=== PATIENT | male | born 1985 | race Caucasian/White ===

== ENCOUNTER 2019-10-23 16:24 | Emergency (ER) | payer BC, SELFPAY ==
[2019-10-23] VITALS (23 sets, daily range): BP systolic 121–163; BP diastolic 71–98; PULSE 78–100; RESP 19–27; O2SAT 94–99
--- NOTE | 2019-10-23 16:27 | W.ED.GENAD ---
Discharge Plan Disposition Patient Disposition: HOME Condition: Good Discharge Details Chief Complaint: Chest Pain Clinical Impression: Atypical chest pain Primary Care Provider: Ana Luisa Sal ED Provider: Priscilla Mead Home Meds and New Rx's Prescriptions: Continued acetaminophen 500 MG tablet 1,000 mg PO TID PRNQty: 90 RF: 0 marijuana Inhalation PRN RF: 0 albuterol sulfate [ProAir HFA] 90 mcg/actuation HFA aerosol inhaler 1 - 2 puff Inhalation .Q4-6H PRN (Reason: shortness of breath or wheezing) Qty: 1 RF: 0 tizanidine 4 mg capsule See Rx Instructions PO QHS PRNRF: 0 Discharge Instructions Instructions: Chest Pain (ED) Additional Instructions: Your exam, labs and imaging are reassuring today. This is most consistent with muscular source of your discomfort. Please encourage water intake. Tylenol and/or ibuprofen as needed for discomfort. Please encourage deep breathing as you did have atelectasis noted on CT of your chest as discussed. Try to avoid repetitive activities and activities that cause increased pain. Develop fever/chills, shortness of breath, difficulty breathing, increased pain or other new/worsening symptom please seek care urgently once again. Otherwise, please follow-up with primary care next week. Stand Alone Forms: PENDING COVID-19 TESTING Referrals: Ana Luisa Sal NP [Primary Care Provider] - Discharge Data Discharge Date/Time-TO BE ENTERED AT DEPARTURE: 10/23/19 18:35 Medical Decision Making <ANYA Chin - Last Filed: 10/25/19 09:18> Patient is a pleasant 34-year-old gentleman, accompanied by his , with chief complaint of chest pain. He reports that last Saturday, he developed central chest discomfort which is made worse with movements, particularly of the upper extremities as well as deep breathing. States that secondary to this discomfort with deep inspiration he has felt slightly short of breath. Has not noted the shortness of breath to be affected by simply walking or going upstairs. He has no history of cardiac disease personally but does report that his father had coronary artery disease and states that he believes he was diagnosed in his late 40s. He denies any recent travel. He has no history of DVTs or blood clots. however, he does report that his father multiple clots and is unsure if these were provoked or unprovoked. He is unsure of any genetic testing that may been performed. States he was at rest at the time the pain came on states that it was a slow progression to the level of discomfort he is currently experiencing. He does not find it is any worse with eating. He denies any trauma. Does not note any rash. Endorses some mild nausea but no vomiting. Denies any lower extremity pain. EKG was reviewed by Dr. Hernandez. Patient is in normal sinus rhythm with a rate 84. No acute ischemic changes are noted. On exam, patient is resting comfortably. He is having no pain while at rest. His lungs are clear, normal cardiovascular exam. He does have pain elicited with palpation about the chest wall. Lower extremities are without edema, no posterior calf pain. Given the patient's family history as well as persistent discomfort I feel that further evaluation is appropriate. I did consider pulmonary embolism on my differential based on familial history as well as persistent discomfort and pleuritic quality of the discomfort and associated shortness of breath. Plan for CT imaging. CT was reviewed by radiologist: FINDINGS: Pulmonary arteries: Normal. No pulmonary emboli. Aorta: Unremarkable. No evidence of aortic dissection with some limitation of evaluation of the root due to cardiac and respiratory motion. It Lungs: There is patchy ground-glass opacity in the left lower lobe. This likely represents atelectasis related to the elevated hemidiaphragm, a component of pneumonia cannot be excluded. Peripheral hypodensities within this region suggest air trapping or possibly peripheral cystic spaces. There are couple surgical clips in the right perihilar region. Pleural space: Unremarkable. No pneumothorax. No pleural effusion. Heart: Unremarkable. No cardiomegaly. No pericardial effusion. Diaphragm: There is moderate elevation of the left hemidiaphragm. Lymph nodes: Unremarkable. No enlarged lymph nodes. Bones/joints: Unremarkable. No acute fracture. Soft tissues: Unremarkable. IMPRESSION: 1. No pulmonary embolus or aortic dissection. 2. Elevated left hemidiaphragm with likely atelectasis in the left lung base. Superimposed pneumonia cannot be excluded. Again questioned patient about any types of infectious symptoms. He denies any cough, fever, congestion. His history does not fit that of possible infection and feel that this is more associated with his atelectasis as he with the patient having discomfort with deep breathing. Labs are reviewed. Patient has no leukocytosis. Normal coagulation study. His initial troponin is less than 0.05. Given the length of his symptoms do not feel that repeat troponin is necessary at this point. His history was much more concerning for possible pulmonary embolism which has been ruled out rather than ACS. Questioning out this more musculoskeletal. Exam the patient pain was greatly exacerbated with having the patient abduct his arms are crossed his chest against resistance. He states that this is what causes the maximal amount of discomfort. With this in mind, I believe this is likely musculoskeletal. He does lift quite frequently at work and has had difficulty performing his job secondary to the discomfort associated with this.. Patient may have had an occult injury leading to this discomfort. Encouraged water intake. Encourage close follow-up with primary care. He was given strict return precautions. Encourage deep breathing. All his questions and concerns were addressed and he is in agreement this plan. HPI <ANYA Chin - Last Filed: 10/25/19 09:18> General Mode of arrival: ambulatory. Date/Time Provider Initiated Documentation: 10/23/19 16:27. Limitations to Documentation: no limitations. Information obtained by: patient, family () and RN notes reviewed. History of Present Illness 34 year old M presents to the emergency department with the chief complaint of CP, described as moderate, with intensity rated at 7. Quality is described as aching, and is localized to the chest. Patient reports no radiation. Patient started experiencing this day(s) (6) and it has been constant. Immobilization improves symptom(s), Movement worsens symptoms . Patient notes chest pain; denies cough, diaphoresis, fever/chills, headaches, loss of appetite, nausea/vomiting, rash, shortness of breath and syncope (dizziness initially, this has been improving). Patient did receive the following treatments prior to arrival, none Related Data Home Medications Medication Instructions Recorded Confirmed acetaminophen 1,000 mg PO TID PRN #90 tab-cap 06/19/17 10/23/19 Marijuana INHALATION PRN 04/08/18 06/03/19 albuterol sulfate 90 mcg/actuation 1 - 2 puff INHALATION .Q4-6H PRN 05/02/18 06/03/19 aerosol inhaler #1 device tizanidine 4 mg capsule See Rx Instructions PO QHS PRN 12/26/18 10/23/19 Previous Rx's Medication Instructions Recorded albuterol sulfate 90 mcg/actuation 1 - 2 puff INHALATION .Q4-6H PRN 05/02/18 aerosol inhaler #1 device Allergies Allergy/AdvReac Type Severity Reaction Status Date / Time duloxetine HCl AdvReac Neuro Verified 10/23/19 16:36 [From Cymbalta] effects; tremor ibuprofen AdvReac gi Verified 10/23/19 16:36 upset/stomach pain Review of Systems <ANYA Chin - Last Filed: 10/25/19 09:18> Constitutional Constitutional: Reports as per HPI, Denies chills, Denies fever(s), Denies headache(s), Denies lethargy and Denies poor appetite Eyes Eyes: Denies change in vision ENT Ears, Nose, Mouth, and Throat: Denies dizziness and Denies headache(s) Cardiovascular Cardiovascular: Reports as per HPI, Denies dyspnea and Denies dyspnea on exertion Respiratory Respiratory: Reports as per HPI, Denies chest congestion, Denies cough, Denies pain on inspiration, Denies pain with cough, Denies dyspnea, Denies dyspnea on exertion and Denies wheezing Gastrointestinal Gastrointestinal: Reports as per HPI, Denies abdominal pain, Denies diarrhea, Denies nausea and Denies vomiting Genitourinary Genitourinary: Denies system reviewed and no additional complaints, except as documented (denies change in urinary habits) Musculoskeletal Musculoskeletal: Reports as per HPI and Denies back pain Integumentary/Breasts Skin/Breast: Reports as per HPI and Denies rash Neurologic Neurologic: Reports as per HPI, Denies dizziness and Denies headache(s) Allergic/Immunologic Allergic/Immunologic: Denies wheezing PFSH <ANYA Chin - Last Filed: 10/25/19 09:18> Medical History (Updated 10/23/19 @ 18:25 by ANYA Chin) Allergic rhinitis, unspecified (Chronic) Asthma Chest pain (Acute) Chronic back pain (Chronic) [facility]; 01/14/2019 lumbar [place] [facility] [place]N (hypertension) (Chronic 08/18/14) Hyperlipidemia, unspecified (Chronic) Mild intermittent asthma without complication (Chronic) Triggered by allergies Obesity (BMI 30-39.9) (Acute) Post laminectomy syndrome (Chronic) Right sided sciatica (Chronic 12/24/11) Chronic, intermittent Surgical History Implantation of Spinal Cord Stimulator (02/01/14) L5/S1 Diskectomy (07/21/12) [facility] [place], had stimulator trial, and has stimulator which doesn't aleviate pain Laminectomy (02/10/14) Sigmoidoscopy Status post insertion of spinal cord stimulator (Resolved) Subsequently removed Social History Smoking/Tobacco Use Status: Never Alcohol Intake: former Drug use: Never Substance use type: marijuana Details: Vapes marijuana at night and 2 times throughout the day on weekends Adopted: No Caregiver/Support person: No Foster care: No Household members: spouse Communication Needs: None Education Level: high school Pets and animals: Yes Pets and animals: cat(s) Current gender identity: male What is your relationship status?: Panel score (0-1 are the most socially isolated patients): 1 What type of physical activity do you participate in: walking Duration: 45-60 minutes/day Frequency: daily Seatbelt use: always Drive intox or ride w/intox route delivery service driver: No Water heater temp set <120 deg: Yes Working smoke detector in home: Yes Fire extinguisher in home: Yes Carbon monox detector in home: Yes Firearms in home: No Do you feel safe at home: Yes Exam <ANYA Chin - Last Filed: 10/25/19 09:18> Const General: cooperative, healthy appearing, comfortable, no acute distress and well developed Nutritional Appearance: average body habitus and well nourished Orientation: alert, awake and oriented x3 HENMT Head: normal to inspection Ears: hearing grossly normal bilaterally Mouth: moist mucous membranes Chest Chest: normal inspection of the chest, normal palpation of entire chest wall, no crepitus and tenderness (anterior aspect has discomfort with AP pressure applied) Resp Effort & Inspection: normal respiratory effort, able to speak in complete sentences and no respiratory distress Auscultation: clear to auscultation bilaterally, no rales, no rhonchi and no wheezes Cardio Rate: regular rate Rhythm: regular rhythm Heart Sounds: S1 normal and S2 normal GI Inspection: normal to inspection, no edema and non-distended Palpation: soft, no hepatosplenomegaly, not firm, no guarding, not rigid and nontender Auscultation: normal bowel sounds Back/Spine/Pelvis Back: no CVA tenderness Thoracic/Lumbar Spine: thoracic and lumbar spine normal to inspection Skin General skin exam: no rashes or lesions noted Trauma: no lacerations or abrasions Neuro General: patient alert, patient awake and patient oriented x3 Cognition: normal cognition Speech: speech normal Gait: normal gait Extrem General: normal to inspection, capillary refill normal, no pedal edema, no calf tenderness and normal gait Psych Appearance: grossly normal and well kempt Mental Status: mental status grossly normal Speech and Movement: speech and movement normal
--- NOTE | 2019-10-23 16:45 | DI.CT_ITS ---
EXAM: CT CHEST PE CTA CLINICAL HISTORY: pleuritic discomfort, dizzy, fam hx of DVT. TECHNIQUE: Imaging Protocol: Axial CT angiography was performed with multi-slice acquisition and mu lti-planar and/or 3D reconstructions. CONTRAST MATERIAL: Intravenous: Omnipaque 350 Contrast volume:100 ml COMPARISON: No exams were available for comparison FINDINGS: Pulmonary Arteries: No evidence of filling defect to suggest pulmonary emboli. Tracheobronchial tree: Patent where visualized. Mediastinum and Sadia: No dominant adenopathy or fluid collection. Pulmonary parenchyma: No consolidation or dominant measurable mass. No architectural distortion. Grou nd-glass opacity in the left lower lobe. Pleura: No effusion or pneumothorax. Heart: The heart is not dilated. No coronary artery calcifications are seen. No pericardial effusion. Aorta: Thoracic aorta non-dilated. No aortic dissection. Upper abdomen: Unremarkable. Mild elevation of the left hemidiaphragm. Bones: Normal. IMPRESSION: 1. No evidence of pulmonary embolism, thoracic aortic dissection or aneurysm. 2. Ground-glass opacity in the left lower lobe likely reflecting atelectasis. Pneumonia cannot be en tirely excluded. DATA REPOSITORY: All CT scans at this facility are submitted to the National Radiology Data Registry (NRDR) Dose Index Registry (DIR) with the [employer] (A[employer]). RADIATION OPTIMIZATION: All CT scans at this facility use at least one of these dose optimization te chniques: automated exposure control; mA and/or kV adjustment per patient size (includes targeted exa ms where dose is matched to clinical indication); or iterative reconstruction.
[2019-10-23] MEDS: Omnipaque 350 MG/ML 100 ML BTL IJ (17:01)
[2019-10-23 17:08] LABS: Abs Immature Grans 0.02 k/cumm (0.0-0.09); Absolute Basophil Count 0.02 k/cumm (0.0-0.2); Absolute Eosinophil Count 0.02 k/cumm (0.0-0.7); Absolute Lymphocyte Count 1.01 k/cumm (1.2-3.4); Absolute Monocyte Count 0.86 k/cumm (0.11-0.7); Basophils % 0.2; Eosinophils % 0.2; HCT 47.5 % (40.0-50.0); HGB 16.8 g/dL (13.5-17.5); Immature Grans % 0.2 %; Lymphocytes % 11.6; Mean Corp. HGB Concentration 35.4 g/dL (32.0-36.0); Mean Corpuscular Hemoglobin 32.2 pg (27.0-33.0); Mean Corpuscular Volume 91.2 fL (80-95); Mean Platelet Volume 9.9 fL (8.0-11.0); Monocytes % 9.9; Neutrophils % 77.9; Platelet Count 287 x1000/uL (130-400); RBC 5.21 m/cumm (4.50-6.00); RBC Distribution Width 12.4 % (11.8-14.1); White Blood Cell Count 8.73 k/cumm (4.4-10.8)
[2019-10-23] MEDS: Normal Saline 1,000 ML 1000 ML IV (17:18)
[2019-10-23 17:22] LABS: PTT Activated 27.4 sec (21.0-31.4); Prothrombin Time 10.5 sec (9.3-11.0)
[2019-10-23 17:29] LABS: ALT 33 U/L (16-63); AST 17 U/L (15-37); Albumin 4.8 g/dL (3.4-5.0); Alkaline Phosphatase 66 U/L (46-116); Anion Gap 11.9 mmol/L (3-11); BUN 12 mg/dL (7-18); Bilirubin, Total 1.1 mg/dL (0.2-1.0); CO2 26.1 mmol/L (21.0-32.0); CREATININE 0.91 mg/dL (0.70-1.30); Calcium 8.6 mg/dL (8.5-10.1); Chloride 101 mmol/L (98-107); Glucose 115 mg/dL (74-106); Potassium 3.6 mmol/L (3.5-5.1); Sodium 139 mmol/L (136-145); Total Protein 8.1 g/dL (6.4-8.2)
[2019-10-23 17:30] LABS: Troponin I < 0.05 ng/Ml (<0.06)
--- NOTE | 2019-10-23 17:49 | DI.VRAD_ITS ---
PROCEDURE INFORMATION: Exam: CT Angiography Chest With Contrast Exam date and time: 10/23/2019 4:50 PM Age: 34 years old Clinical indication: Pain; Pleuordynia; Patient HX: Pleuritic discomfort, dizzy, fam HX of dvt TECHNIQUE: Imaging protocol: Computed tomographic angiography of the chest with intravenous contrast. 3D rendering: MIP and/or 3D reconstructed images were created by the technologist. COMPARISON: No relevant prior studies available. FINDINGS: Pulmonary arteries: Normal. No pulmonary emboli. Aorta: Unremarkable. No evidence of aortic dissection with some limitation of evaluation of the root due to cardiac and respiratory motion. It Lungs: There is patchy ground-glass opacity in the left lower lobe. This likely represents atelectasis related to the elevated hemidiaphragm, a component of pneumonia cannot be excluded. Peripheral hypodensities within this region suggest air trapping or possibly peripheral cystic spaces. There are couple surgical clips in the right perihilar region. Pleural space: Unremarkable. No pneumothorax. No pleural effusion. Heart: Unremarkable. No cardiomegaly. No pericardial effusion. Diaphragm: There is moderate elevation of the left hemidiaphragm. Lymph nodes: Unremarkable. No enlarged lymph nodes. Bones/joints: Unremarkable. No acute fracture. Soft tissues: Unremarkable. IMPRESSION: 1. No pulmonary embolus or aortic dissection. 2. Elevated left hemidiaphragm with likely atelectasis in the left lung base. Superimposed pneumonia cannot be excluded. Dictated and Authenticated by: Charlie Thomas MD. Ordering:MELY Wells MD
== END 2019-10-23 18:35 | disposition home or self-care (01) ==
PROVIDERS: Emergency Provider Physician Assistant; PCP Nurse Practitioner Family
DX: R07.89 Other chest pain (principal); I10 Essential (primary) hypertension
CPT/HCPCS: 36415; 71275; 80053; 93005; 96361; 96374; 99285; 83735; 84484; 85025; 85610; 85730; 93010; J3490